=== PATIENT | female | born 1950 | race Caucasian/White ===

== ENCOUNTER 2021-11-11 12:34 | Emergency (ER) | payer OTHER ==
[~2021-11-11] VITALS: Ht 165.1 cm; Wt 95.3 kg
[2021-11-11] MEDS ORDERED: EZALLOR SPRINKL20 MG PO (13:07)
[2021-11-11] MEDS ORDERED: ZESTRIL20 MG (13:08)
[2021-11-11] MEDS ORDERED: TOPROL XL25 M1 (13:08)
[2021-11-11] MEDS ORDERED: DRAMAMINE LESS25 MG PO (17:30)
== END 2021-11-11 17:45 | disposition home or self-care (01) ==
LOC: ER 12:34
DX: R42 Dizziness and giddiness (principal)